=== PATIENT | female | born 1980 | race Caucasian/White ===

== ENCOUNTER → 2016-10-16 | Day surgery (SDC) | payer OTHER ==
[~2016-10-16] VITALS: Ht 170.2 cm; Wt 60.8 kg
--- NOTE | 2016-10-16 12:58 | Operative Report ---
Operative/Inv Procedure Report Surgery Date: 10/16/16 Name of Procedure: #1 hysteroscopy #2 D&C Pre-Operative Diagnosis: Menorrhagia Post-Operative Diagnosis: Menorrhagia Estimated Blood Loss: less than 50ml Surgeon/Aircraft Technician: CLAUDETTE ELI,VILMA Landrum Anesthesia: local monitored anesthesi Specimens: Endometrial curetting Condition: Good Operative/Procedure Note Note: Patient was brought to the operating room and placed in dorsal supine position timeout was accomplished while patient was awake patient then underwent anesthesia was placed in low stirrups examination under anesthesia revealed the anterior legs uterus 8 cm with an irregular fundal fibroid. A speculum was placed in the vagina a single-tooth tenaculum placed on the anterior cervical lip the endocervical canal was dilated to a #7 Hanks dilator a rigid hysteroscope was placed through the endocervical canal using NS as a distention medium. Normal anatomy was noted no fibroids no polyps or other lesions this was followed by a sharp curettage with a return of moderate tissue sent to pathology for examination the end of the procedure the single-tooth tenaculum was removed as was the speculum hemostasis was good patient was moved to recovery room in good condition
== END ==
LOC: STS 02:51
DX: N92.0 Excessive and frequent menstruation with regular cycle (principal); N85.9 Noninflammatory disorder of uterus, unspecified; N93.8 Other specified abnormal uterine and vaginal bleeding; F17.200 Nicotine dependence, unspecified, uncomplicated
CPT/HCPCS: J2250

== ENCOUNTER 2016-10-21 13:37 | Emergency (ER) | payer OTHER ==
[2016-10-21 13:40] VITALS: BP 163/103
--- NOTE | 2016-10-21 14:20 | ED ANKLE/FOOT INJURY COMPLAINT ---
History of Present Illness General Chief Complaint: Foot or Ankle Injury Stated Complaint: LFT FOOT PAIN Source: patient, old records Exam Limitations: no limitations Vital Signs & Intake/Output Vital Signs & Intake/Output ED Intake and Output 10/22 0000 10/21 1200 Intake Total 0 Output Total Balance 0 Intake, Oral 0 Allergies Coded Allergies: Penicillins (Severe, HIVES 10/15/16) acetaminophen (From TYLENOL) (Intermediate, RASH 10/15/16) Triage Note: PT TO ED WITH LT FOOT SWELLING X1 DAY. DENIES ANY INJURY. WAS SIB DR SY. HAD D&C ON THE , TOLD TO COME TO ER TO R/O BLOOD CLOT. DENIES ANY CP/SOB. Triage Nurses Notes Reviewed? yes Occurred: yesterday Duration: day(s): (1), constant Timing: recent history Severity: mild Severity Numbers: 4 Pain/Injury Location: Left: Foot. Method of Injury: unknown No Modifying Factors: none Associated Symptoms: swelling : No Patient currently breastfeeds: No HPI: 28-year-old female with no medical history sent in by her laundry aide for evaluation complaining of left foot swelling for the past 1 day. Her history is significant in that 6 days ago she had a D&C performed by Dr. bingham. The patient denies any calf pain or swelling there is no pain to her foot she denies any right foot swelling. No modifying factors or associated symptoms or recent travel or immobility (JUANITA JOVEL) Past History Travel History Traveled to [place] past 21 day No Medical History Any Pertinent Medical History? none SERVICE PARTS COORDINATOR/Reproductive: D&C Surgical History Surgical History: none Psychosocial History What is your primary language Ma[place] Tobacco Use: Never used Family History Hx Contributory? No (JUANITA JOVEL) Review of Systems Review of Systems Constitutional: Reports: no symptoms, see HPI. All Other Systems: Reviewed and Negative Comments Review of systems: See HPI, All other systems negative. Constitutional, no chills no fever, no malaise HEENT: No visual changes no sore throat, no ear pain Cardiovascular: No chest pain , no palpitation Skin: no rashes, no change in skin Respiratory: No dyspnea no cough no sputum GI: No nausea no vomiting, no diarrhea : No dysuria Muscle skeletal: No joint pain no back pain, no neck pain, Neurologic: No numbness, no headache Psych: No stress Heme/endocrine: No bruising no bleeding Immunology: No lymphadenopathy (ELAN BOGGS,JUANITA) Physical Exam Physical Exam General Appearance: well developed/nourished, no apparent distress, alert, awake Leg/Knee/Thigh Left: normal range of motion Comments: Well-developed well-nourished patient in no apparent distress. HEENT: Atraumatic, extraocular motion intact Neck: Supple, FROM Back: FROM Cardiovascular: Regular rate and rhythms no murmurs rubs or gallops, Respiratory: Chest nontender.There were no bony deformities, no asymmetry. No respiratory distress. Patient speaking in full complete sentences. Breath sounds clear to auscultation bilaterally: NO W/R/R Upper Extremities: full range of motion Neuro: awake, alert, and oriented to person, place and time. There were no obvious focal neurologic abnormalities. Skin: Warm & dry;No appreciable rash on exposed skin Psych: Mood affect normal, normal memory normal judgment. (ELAN BOGGS,JUANITA) Progress Differential Diagnosis: DVT, pedal edema,. contusion Plan of Care: Ultrasound ordered ibuprofen ordered for pain I discussed with the patient at length all of their results. I had an extensive conversation regarding need for close follow up with their primary care physician this week as well as return precautions. I answered all of their questions, they feel comfortable with the plan and follow-up care. Diagnostic Imaging: Viewed by Me: Ultrasound. Discussed w/RAD: Ultrasound. Radiology Impression: PATIENT: KATHIA JOSEPH PRESENT AGE: 36 PATIENT ACCOUNT NO: [id number] : 78 LOCATION: [facility] ORDERING PHYSICIAN: JUANITA BOGGS SERVICE DATE: 10/21/16 EXAM TYPE: US - US-UNILATERAL VENOUS DOPPLER EXAMINATION: US TRIPLEX LOWER EXTREMITY, LEFT CLINICAL INFORMATION: Left lower extremity swelling. Recent intervention. COMPARISON: None TECHNIQUE: Color-flow triplex imaging with spectral analysis and compression Doppler were performed on the left lower extremity. FINDINGS: Respiratory variation, normal compression and augmented flow are noted throughout the left lower extremity. The visualized common femoral vein, superficial femoral vein, profunda femoral vein, popliteal vein and midcalf peroneal and posterior tibial venous segments show no evidence of deep venous thrombosis. There is no Robbins's cyst. IMPRESSION: Normal triplex scan without evidence of deep venous thrombosis involving the left lower extremity. DICTATED BY: LILIANE SOLORIO MD DATE/TIME DICTATED:10/21/161511 LEARNING SUPPORT TEACHER: GIOVANY DATE/TIME TRANSCRIBED:10/21/161511 CONFIDENTIAL, DO NOT COPY WITHOUT APPROPRIATE AUTHORIZATION. <Electronically signed in Other Vendor System> SIGNED BY: OSMIN ELI,LILIANE 10/21/16 1517 (JUANITA JOVEL) Departure Departure Time of Disposition: 1523 Disposition: HOME OR SELF CARE Condition: Stable Clinical Impression Primary Impression: Pedal edema Referrals: JOEL CALI (PCP/Family) Additional Instructions: rest, ice, elevate leg, ibuprofen for pain. follow up with your pmd, return with any concerns Departure Forms: Customer Survey General Discharge Information (JUANITA JOVEL) PA/FARM MANAGEMENT AGENT Co-Sign Statement Statement: ED Attending supervision documentation- [] I saw and evaluated the patient. I have also reviewed all the pertinent lab results and diagnostic results. I agree with the findings and the plan of care as documented in the PA's/FARM MANAGEMENT AGENT's documentation. [X] I have reviewed the ED Record and agree with the PA's/FARM MANAGEMENT AGENT's documentation. [] Additions or exceptions (if any) to the PAs/FARM MANAGEMENT AGENT's note and plan are summarized below: [] (DEVANTE ELI,TAMERA Peña)
--- NOTE | 2016-10-21 15:17 | ULTRASOUND REPORT ---
EXAMINATION: US TRIPLEX LOWER EXTREMITY, LEFT CLINICAL INFORMATION: Left lower extremity swelling. Recent intervention. COMPARISON: None TECHNIQUE: Color-flow triplex imaging with spectral analysis and compression Doppler were performed on the left lower extremity. FINDINGS: Respiratory variation, normal compression and augmented flow are noted throughout the left lower extremity. The visualized common femoral vein, superficial femoral vein, profunda femoral vein, popliteal vein and midcalf peroneal and posterior tibial venous segments show no evidence of deep venous thrombosis. There is no Robbins's cyst. IMPRESSION: Normal triplex scan without evidence of deep venous thrombosis involving the left lower extremity.
== END 2016-10-21 15:45 ==
LOC: ERH 13:37
DX: R60.9 Edema, unspecified (principal)